=== PATIENT | male | born 2000 | race Caucasian/White ===

== ENCOUNTER 2021-04-11 08:18 | Outpatient (CLI) | payer BC | END 2021-04-11 08:19 | disposition home or self-care (01) | LOC: TBSIIMAG 08:18 | PROVIDERS: ATTEND Orthopaedic Surgery | DX: M25.561 Pain in right knee (principal); S83.271D Complex tear of lateral meniscus, current injury, right knee, subsequent encounter; S83.421A Sprain of lateral collateral ligament of right knee, initial encounter ==

== ENCOUNTER 2021-04-17 17:09 | Outpatient (CLI) | payer BC ==
[2021-04-17 18:34] LABS: #Eosinphils 0.1 10x3/uL (0.0-0.5); #Monocytes 0.4 10x3/uL (0.0-1.1); #Neutrophils 3.1 10x3/uL (1.5-8.4); %Basophils 0.5 % (0.0-2.0); %Eosinophils 1.9 % (0.0-6.0); %Monocytes 6.9 % (0.0-10.0); %Neutrophils 48.1 % (40.0-75.0); Hemoglobin 14.4 g/dL (13.5-17.5); Mean Corpuscular HGB CONC 32.5 g/dL (32.0-36.0); Mean Corpuscular Hemoglobin 28.9 pg (27.0-33.0); Mean Platelet Volume 9.8 fl (7.4-10.4); Platelet Count 359 10x3/uL (150-450); RBC Distribution Width 11.8 % (11.5-14.5); Red Blood Cell (RBC) Count 4.98 10x6/uL (4.32-5.72); White Blood Cell (WBC) Count 6.4 10x3/uL (3.5-10.5)
[2021-04-18 08:17] LABS: SARS-CoV-2 PCR by NAA Not Detected (NotDetected)
== END 2021-04-17 17:10 | disposition home or self-care (01) ==
LOC: LABBT 17:09
PROVIDERS: ATTEND Orthopaedic Surgery
DX: Z01.812 Encounter for preprocedural laboratory examination (principal); Z20.822 Contact with and (suspected) exposure to COVID-19
CPT/HCPCS: 85025; U0003; U0005

== ENCOUNTER 2021-04-20 07:23 | Day surgery (SDC) | payer BC ==
[2021-04-19 12:12] VITALS: BMI 29.1
[2021-04-20] MEDS ORDERED: ceFAZolin 2 GM/DEX 5% 100 ML BAG ONE (07:58)
[2021-04-20] MEDS ORDERED: PROPOFOL 20 ML ONE (08:55)
[2021-04-20] MEDS ORDERED: Fentanyl 100 MCG/2 ML VIAL ONE (09:44)
[2021-04-20] MEDS ORDERED: Ketorolac Tromethamine 30 MG/ML VIAL ONE (09:56)
[2021-04-20] MEDS ORDERED: Bupivacaine HCl 0.5%/Epinephrine 1:200,000/PF 30 ml Vial ONE (09:56)
[2021-04-20] MEDS ORDERED: Lidocaine 1% PF 5 ML VIAL ONE (09:56)
[2021-04-20] MEDS ORDERED: Dexamethasone 20 MG/5 ML VIAL ONE (09:56)
[2021-04-20] MEDS ORDERED: PROPOFOL 200 MG/20 ML VIAL ONE (09:56)
[2021-04-20] MEDS ORDERED: Lidocaine 2% w/Epinephrine 1:200K 20 ML VIAL ONE (09:56)
[2021-04-20] MEDS ORDERED: Ondansetron PF 4 MG/2 ML Vial ONE (09:56)
[2021-04-20] MEDS ORDERED: Lidocaine 1% (PF) 30 ML VIAL ONE (10:40)
== END 2021-04-20 13:49 | disposition home or self-care (01) ==
LOC: SDC 07:23
PROVIDERS: ATTEND Orthopaedic Surgery
PROC: 0SBC4ZZ Excision of Right Knee Joint, Percutaneous Endoscopic Approach (ICD-10-PCS; principal; 2021-04-20)
DX: S83.271A Complex tear of lateral meniscus, current injury, right knee, initial encounter (principal); J06.9 Acute upper respiratory infection, unspecified; F17.290 Nicotine dependence, other tobacco product, uncomplicated; Z79.2 Long term (current) use of antibiotics; Z79.52 Long term (current) use of systemic steroids; X50.0XXA Overexertion from strenuous movement or load, initial encounter; Y93.67 Activity, basketball
CPT/HCPCS: J1100; J1885; J2001; J2405; J2704; J3010